=== PATIENT | male | born 1940 | race Caucasian/White ===

== ENCOUNTER 2020-11-22 19:22 | Inpatient (IN) | payer MEDICARE, OTHER ==
[~2020-11-22] VITALS: Ht 177.8 cm; Wt 64.9 kg
[2020-11-22 20:41] LABS: BASOPHILS # (AUTO) 0.1 K/uL (0.0-0.2); BASOPHILS % (AUTO) 1.1 % (0.0-2.0); EOSINOPHILS % (AUTO) 3.3 % (0.0-6.0); HEMATOCRIT 42 % (39-51); HEMOGLOBIN 13.9 g/dL (13.5-17.5); LYMPHOCYTES # (AUTO) 1.4 K/uL (0.8-4.8); MEAN CORPUSCULAR HGB CONC 33 g/dl (31.0-36.0); MEAN CORPUSCULAR VOLUME 97 fL (80-96); MONOCYTES # (AUTO) 0.8 K/uL (0.1-1.30); MONOCYTES % (AUTO) 10.3 % (2.0-12.0); NEUTROPHILS # (AUTO) 5.3 K/uL (1.8-8.9); NEUTROPHILS % (AUTO) 67.3 % (43.0-81.0); PLATELET COUNT (AUTO) 248 K/uL (150-450); RED BLOOD CELL COUNT(AUTO) 4.35 MIL/uL (4.5-6.0); WHITE BLOOD COUNT (AUTO) 7.8 K/uL (4.3-11.0)
[2020-11-22 20:52] LABS: CALCIUM, SERUM 9.1 mg/dL (8.5-10.1); CARBON DIOXIDE 31 mmol/L (21-32); CHLORIDE 104 mmol/L (98-107); CREATININE 1.3 mg/dL (0.6-1.3); GLUCOSE 96 mg/dL (74-106); POTASSIUM 4.7 mmol/L (3.5-5.1); SODIUM SERUM 141 mmol/L (136-145); UREA NITROGEN, BLOOD 31 mg/dL (7-18)
--- NOTE | 2020-11-22 20:59 | NUR ---
PATIENT REFUSED TO GET CT. ER MADE AWARE.
[2020-11-22 21:06] LABS: ALANINE AMINOTRANSFERASE 30 U/L (12-78); ALBUMIN 3.5 g/dL (3.4-5.0); ALCOHOL, BLOOD < 3 mg/dL (0-0); ALKALINE PHOSPHATASE 74 U/L (46-116); ASPARTATE AMINOTRANSFERASE 30 U/L (15-37); BILIRUBIN,DIRECT 0.1 mg/dL (0.0-0.2); BILIRUBIN,TOTAL 0.3 mg/dL (0.2-1.0); TOTAL PROTEIN, SERUM 7.9 g/dL (6.4-8.2)
[2020-11-22 21:10] LABS: ACETAMINOPHEN < 2 ug/ml (10-30)
--- NOTE | 2020-11-22 21:22 | NUR ---
JOHN CRISIS MARKING MACHINE OPERATOR PAGED.
[2020-11-22 22:35] LABS: BILIRUBIN,URINE NEGATIVE (NEGATIVE); COLOR,URINE YELLOW (YELLOW); LEUKOCYTE ESTERASE ,URINE SMALL (NEGATIVE); NITRITE, URINE NEGATIVE (NEGATIVE); PH,URINE 6.5 (5.0-8.0); PROTEIN,URINE NEGATIVE (NEGATIVE); UGLUCOSE NEGATIVE (NEGATIVE); UROBILINOGEN,URINE 0.2 EU/dL (0.2)
[2020-11-22 23:01] LABS: BACTERIA,URINE Few /HPF (None Seen); RBC,URINE 0-2 /HPF (0-2); SQUAMOUS EPITHELIAL CELL,UR Few /HPF (None Seen); WBC,URINE 21-50 /HPF (0-3)
--- NOTE | 2020-11-23 00:30 | NUR ---
REPORT GIVEN TO MORGAN MORIN.
--- NOTE | 2020-11-23 00:35 | NUR ---
PATIENT TRANSFERRED TO ROOM 211, VSS, IN NO ACUTE DISTRESS.
[2020-11-23] MEDS ORDERED: BIMA2.5D5 EACHEYE (00:37)
[2020-11-23] MEDS ORDERED: HYDR10SY16 PO (00:37)
[2020-11-23] MEDS ORDERED: CYAN-51 PO (00:37)
[2020-11-23] MEDS ORDERED: VIT1CAPS9 PO (00:37)
[2020-11-23] MEDS ORDERED: QUET25TA PO (00:37)
[2020-11-23] MEDS ORDERED: LEVO150T8 PO (00:37)
[2020-11-23] MEDS ORDERED: MELA3TAB41 PO (00:37)
[2020-11-23] MEDS ORDERED: CETI-90 PO (00:37)
[2020-11-23] MEDS ORDERED: MAGN400T8 PO (00:37)
[2020-11-23] MEDS ORDERED: CHOL100045 PO (00:37)
[2020-11-23] MEDS ORDERED: QUET50TA PO (00:37)
--- NOTE | 2020-11-23 00:41 | NUR ---
GPS ADMISSION NOTE, RECEIVED PATIENT FROM [facility] PATIENT ARRIVED ON THIS UNIT AT 0041 VIA GURNEY WITH 2 CAMP HEAD COUNSELOR ESCORTS. PATIENT ADMITTED ON A 5150 HOLD FOR DTO AND GD. PER HOLD PATIENT IS ALERT AND ORIENTED X 1 VERY CONFUSED AND UNABLE TO ANSWER SPECIFIC INFORMATION ABOUT HIMSELF. PATIENT HAS BEEN HAVING INCREASED AGITATION, FRUSTRATION, AND DELUSIONS. PATIENT UNABLE TO GIVE A VIABLE PLAN OF SELF CARE AT THIS TIME. THE 5150 WAS REVIEWED AND THE DOCUMENTATION IN THE 5150 HOLD APPEARS TO REFLECT THE PRESENTATION OF THE PATIENT. UPON FACE TO FACE ASSESSMENT PATIENT IS NOTED TO BEING CONFUSED, DISHEVELED, DISORGANIZED, COOPERATIVE, AND NEEDS REDIRECTION. PATIENT IS CURRENTLY LYING IN BED AWAKE, HAS NO S/S OR COMPLAINTS OF PAIN. PATIENT IS DISPLAYING NO S/S OF APPARENT DISTRESS. PATIENT BREATHING IS UNLABORED WITH EQUAL RISE AND FALL OF THE CHEST. PATIENT IS ALERT AND ORIENTATED X 1 ON ROOM AIR. PATIENT ASSISTED WITH TURING AND REPOSITIONING Q2HR AND PRN FOR COMFORT AND CIRCULATION. PATIENT HAS NO NEEDS AT THIS TIME. PATIENT DENIES SUICIDE IDEATIONS AND HOMICIDAL IDEATIONS AT THIS TIME BUT IS CONFUSED. PATIENT REFUSED TO SIGN ANY PAPER WORK DUE TO HIS CONFUSION. PATIENT ADVISED OF HIS HOLD AND PATIENT RIGHTS BOOKLET GIVEN. PATIENT IS UNDER THE PSYCHIATRIC CARE OF DR. LAWSON AND THE MEDICAL CARE OF DR MEIER. PATIENT BELONGINGS WERE INVENTORIED AND CHECKED FOR CONTRABAND. ALL CONTRABAND REMOVED AND STORED IN PATIENT HALLWAY LOCKER. PATIENT ADVANCED DIRECTIVES PREFERENCE, IMMUNIZATIONS QUESTIONER, NECESSARY PAPERWORK COMPLETED. PATIENT REFUSED SKIN ASSESSMENT. PATIENT ORIENTATED TO ROOM, FLOOR, AND STAFF WITH ALL QUESTIONS ANSWERED. PATIENT EDUCATED ON THE USE OF THE CALL VALENTIN. PATIENT BED SIDE RAILS ARE UP X 2 FOR SAFETY. PATIENT BED IS LOCKED, LOW AND I WILL CONTINUE TO MONITOR THIS PATIENT Q 15 MIN WITH THE HELP OF STAFF TO MAINTAIN SAFETY.
[2020-11-23] MEDS ORDERED: MAGNESIUM HYDROXIDE 30 ML UDC PO PRN (01:00)
[2020-11-23] MEDS ORDERED: MAG HYDROX/AL HYDROX/SIMETH 30 ML UDC PO PRN (01:00)
[2020-11-23] MEDS ORDERED: LORAZEPAM 0.5 MG TABLET PO PRN (01:00)
[2020-11-23] MEDS ORDERED: ACETAMINOPHEN 325 MG TABLET PO PRN (01:00)
[2020-11-23] MEDS ORDERED: ZOLPIDEM TARTRATE 5 MG TABLET PO PRN (01:00)
[2020-11-23] MEDS ORDERED: BLOOD SUGAR DIAGNOSTIC 1 EACH STRIP IN ONE (01:30)
[2020-11-23 02:42] VITALS: BP 134/71
[2020-11-23] MEDS ORDERED: cetrizine 10 MG TABLET PO PRN (05:00)
[2020-11-23] MEDS ORDERED: hydrOXYzine HCL SYRUP 10 MG/5 ML UDC PO PRN (05:00)
[2020-11-23] MEDS: LEVOTHYROXINE SODIUM 75 MCG TABLET PO SCH (07:30)
[2020-11-23 08:00] VITALS: BP 126/68
[2020-11-23] MEDS: CEPHALEXIN MONOHYDRATE 250 MG CAPSULE PO SCH ×3 (08:48→17:15)
[2020-11-23] MEDS: MAGNESIUM OXIDE 400 MG TABLET PO SCH (08:48)
[2020-11-23] MEDS: SERTRALINE HCL 25 MG TABLET PO SCH (12:04)
[2020-11-23] MEDS: LORAZEPAM 0.5 MG TABLET PO PRN ×2 (12:04→20:47)
[2020-11-23 16:00] VITALS: BP 124/80
[2020-11-23] MEDS: OLANZAPINE 2.5 MG TABLET PO SCH (16:40)
[2020-11-23] MEDS ORDERED: BIMATOPROST 2.5 ML DROPS OP SCH (18:00)
--- NOTE | 2020-11-23 18:07 | NUR ---
GPS RN NOTE: PATIENT SITTING IN THE CHAIR DINNING ROOM , RESTLESS CONFUSED DISORGANIZED, UNABLE TO PERFORM CT OF HEAD WILL INDORSE TO INCOMING SHIFT NURSE , TRY LATER .
--- NOTE | 2020-11-23 19:30 | NUR ---
RN NOTES: PT. BEHAVIOR UNCCOPERTIVE , ANXIOUS, EASILY AGITED AND PT. NOTED WITH SELF INFLICTED SKIN DISCOLORATIONS / BRUISES, WILL CONTINUE WITH CARE.
[2020-11-23 20:00] VITALS: BP 104/65
--- NOTE | 2020-11-23 20:49 | NUR ---
RN NOTES: ANXIETY PT. NOTED VERY ANXIOUS , RESTLESS , CLIMBING OUT THE BED AND NOT STAYING HIS BED ,SCREAMING ,ATIVAN 1 MG PO PRN GIVEN , WILL CONTINUE TO MONITOR.
[2020-11-23] MEDS: LATANOPROST EYE DROP 0.005% 2.5 ML BOTTLE OP SCH (21:15)
--- NOTE | 2020-11-24 06:30 | NUR ---
RN NOTES: PATIENT WAS ASSISTED TO BED MULTIPLE TIMES THROUGH OUT THE SHIFT WITH THE HELP OF STAFF BUT PT. REFUSED TO STAY IN BED EVERY TIME HE WAS ASSISTED TO BED. PATIENT ATTEMPTS TO CLIMB OUT OF BED UNASSISTED, UNABLE TO FOLLOW DIRECTIONS DUE TO CONFUSION, UNCOOPERATIVE. RESISTIVE TO CARE & ASSISTANCE. PATIENT WAS ASSISTED BACK TO SUZANNE CHAIR, PATIENT WAS NOTED BANGING ON SUZANNE CHAIR TRAY, AGITATED, ANXIOUS & RESTLESS. PRN ATIVAN WAS GIVEN AT NIGHT ORDERED. ATIVAN HELPED TO CALM DOWN THE PATIENT, BUT PATIENT REFUSED TO STAY IN BED THROUGH OUT THE NIGHT. WILL ENDORSE TO AM RN FOR CONTINUITY OF CARE.
[2020-11-24 08:00] VITALS: BP 110/80
[2020-11-24] MEDS: SERTRALINE HCL 25 MG TABLET PO SCH (08:46)
[2020-11-24] MEDS: MAGNESIUM OXIDE 400 MG TABLET PO SCH (08:46)
[2020-11-24] MEDS: LEVOTHYROXINE SODIUM 75 MCG TABLET PO SCH (08:46)
[2020-11-24] MEDS: LORAZEPAM 0.5 MG TABLET PO PRN ×2 (08:47→16:39)
[2020-11-24] MEDS: OLANZAPINE 2.5 MG TABLET PO SCH ×2 (08:47→16:39)
[2020-11-24] MEDS: CEPHALEXIN MONOHYDRATE 250 MG CAPSULE PO SCH ×3 (08:49→16:39)
--- NOTE | 2020-11-24 08:58 | NUR ---
WOUND CARE CONSULT: PT SEEN FOR RT ARM SKIN TEAR. RECOMMENDATIONS MADE FOR SKIN PROTECTION AND WOUND CARE. DISCUSSED WITH NURSING STAFF. MD IN AGREEMENT WITH PLAN OF CARE.
[2020-11-24] MEDS: Z GUARD REMEDY 2 OZ OINT TP SCH (09:19)
--- NOTE | 2020-11-24 09:32 | NUR ---
RECEIVED PATIENT AWAKE ALERT IN CHAIR, NO ACUTE DISTRESS NOTED. APPEARS ANXIOUS , FLAT AFFECT, UNKEMPT, GUARDED WITHDRAWN. DENIES SI HI AT THIS TIME.PT SPEECH GARBLED AND RESTLESS. VERBALIZATION OF FEELINGS ENCOURAGED. SAFETY PRECAUTIONS IN PLACE. WILL CONTINUE TO MONITOR Q15 FOR SAFETY, MOOD AND BEHAVIOR.
--- NOTE | 2020-11-24 09:33 | NUR ---
RN NOTE WOUND CARE PLAN ORDERED FOR PT. XEROFORM AND DRY DRESSING APPLIED. WILL CONTINUE TO MONITOR.
[2020-11-24 16:00] VITALS: BP 117/89
--- NOTE | 2020-11-24 18:06 | NUR ---
RN CLOSING NOTE PT IN SUZANNE CHAIR. DISHEVELED APPEARANCE. COOPERATIVE AND DEPRESSED. ANXIOUS IN PERIODS. AVH PRESENT. DENIES ANY SI/HI. MED COMPLIANT. SAFETY PRECAUTIONS IN PLACE. Q15 MINUTE CHECKS SIGNED. WILL GIVE REPORT TO NIGHT NURSE FOR KYA.
--- NOTE | 2020-11-24 20:02 | NUR ---
RN NOTES: PT. REFUSED TO STAY IN BED , PATIENT ATTEMPTS TO CLIMB OUT OF BED UNASSISTED, UNABLE TO FOLLOW DIRECTIONS DUE TO CONFUSION, UNCOOPERATIVE. RESISTIVE TO CARE & ASSISTANCE. PATIENT WAS ASSISTED BACK TO SUZANNE CHAIR, PATIENT WAS NOTED BANGING ON BED SIDE RALE, AGITATED, ANXIOUS & RESTLESS. WILL ENDORSE CONTINUITY OF CARE.
--- NOTE | 2020-11-24 20:07 | NUR ---
RN NOTES: PT. REFUSED TO STAY IN BED , PATIENT ATTEMPTS TO CLIMB OUT OF BED UNASSISTED, UNABLE TO FOLLOW DIRECTIONS DUE TO CONFUSION, UNCOOPERATIVE. RESISTIVE TO CARE & ASSISTANCE. PATIENT WAS ASSISTED BACK TO SUZANNE CHAIR, PATIENT WAS NOTED BANGING ON BED SIDE RALE, AGITATED, ANXIOUS & RESTLESS. PRN ATIVAN PO GIVEN , WILL ENDORSE CONTINUITY OF CARE.
[2020-11-24 20:30] VITALS: BP 140/86
[2020-11-24] MEDS: LATANOPROST EYE DROP 0.005% 2.5 ML BOTTLE OP SCH (21:42)
--- NOTE | 2020-11-25 04:49 | NUR ---
RN NOTES: CT HEAD NOT DONE , PT. KEEPS MOVING HIS HEAD AND PT. BEHAVIOR UNCOOPERTIVE EASILY AGITED .
--- NOTE | 2020-11-25 04:55 | NUR ---
RN NOTES: CT HEAD NOT DONE , PT. KEEPS MOVING HIS HEAD, ENCOURAGED TO PATIENT , BUT PT. BEHAVIOR UNCOOPERTIVE EASILY AGITED .
[2020-11-25 07:07] LABS: BASOPHILS % (AUTO) 0.3 % (0.0-2.0); HEMATOCRIT 43 % (39-51); HEMOGLOBIN 14.2 g/dL (13.5-17.5); LYMPHOCYTES # (AUTO) 0.4 K/uL (0.8-4.8); LYMPHOCYTES % (AUTO) 2.4 % (20.0-44.0); MEAN CORPUSCULAR HGB CONC 33 g/dl (31.0-36.0); MEAN CORPUSCULAR VOLUME 97 fL (80-96); MONOCYTES # (AUTO) 0.7 K/uL (0.1-1.30); MONOCYTES % (AUTO) 4.1 % (2.0-12.0); NEUTROPHILS # (AUTO) 16.6 K/uL (1.8-8.9); NEUTROPHILS % (AUTO) 93.2 % (43.0-81.0); PLATELET COUNT (AUTO) 230 K/uL (150-450); RED BLOOD CELL COUNT(AUTO) 4.39 MIL/uL (4.5-6.0); WHITE BLOOD COUNT (AUTO) 17.8 K/uL (4.3-11.0)
[2020-11-25] MEDS: LEVOTHYROXINE SODIUM 75 MCG TABLET PO SCH (07:30)
[2020-11-25 07:32] LABS: ALANINE AMINOTRANSFERASE 29 U/L (12-78); ALBUMIN 3.7 g/dL (3.4-5.0); ALKALINE PHOSPHATASE 74 U/L (46-116); ASPARTATE AMINOTRANSFERASE 35 U/L (15-37); BILIRUBIN,TOTAL 0.7 mg/dL (0.2-1.0); CALCIUM, SERUM 9.6 mg/dL (8.5-10.1); CARBON DIOXIDE 24 mmol/L (21-32); CHLORIDE 107 mmol/L (98-107); CREATININE 1.4 mg/dL (0.6-1.3); GLUCOSE 157 mg/dL (74-106); POTASSIUM 4.4 mmol/L (3.5-5.1); SODIUM SERUM 144 mmol/L (136-145); TOTAL PROTEIN, SERUM 8.4 g/dL (6.4-8.2); UREA NITROGEN, BLOOD 50 mg/dL (7-18)
[2020-11-25 07:36] LABS: CHOLESTEROL 211 mg/dL (<200); HDL CHOLESTEROL 87 mg/dL (40-60); LDL 120 mg/dL (0-99); TRIGLYCERIDES 36 mg/dL (30-150)
[2020-11-25 08:00] VITALS: BP 134/69
--- NOTE | 2020-11-25 08:15 | NUR ---
GPS RN NOTE: DR VALLES NOTIFIED PATIENT CONDITION AND LABS THIS MORNING. WAITING FOR ORDERS
[2020-11-25] MEDS: CEPHALEXIN MONOHYDRATE 250 MG CAPSULE PO SCH ×3 (09:00→16:33)
[2020-11-25] MEDS: OLANZAPINE 2.5 MG TABLET PO SCH ×2 (09:00→16:33)
[2020-11-25] MEDS: SERTRALINE HCL 25 MG TABLET PO SCH (09:00)
[2020-11-25] MEDS: MAGNESIUM OXIDE 400 MG TABLET PO SCH (09:00)
[2020-11-25] MEDS ORDERED: IV NS 0.9% 1,000 ML IV ONE (09:30)
[2020-11-25] MEDS: Z GUARD REMEDY 2 OZ OINT TP SCH (09:39)
--- NOTE | 2020-11-25 09:40 | NUR ---
GPS RN NOTE: PATIENT REFUSED MEDICATIONS GETTING AGITATED, RESTLESS, ANGRY MOOD. EXPLAIN RISK AND BENEFITS PT CONFUSED , DISORGANIZED WILL CONTINUE MONITORING.
[2020-11-25] MEDS: LORAZEPAM 0.5 MG TABLET PO PRN (12:14)
--- NOTE | 2020-11-25 12:18 | NUR ---
GPS RN NOTE: PATIENT SITTING IN THE CHAIR DINNING ROOM , RESTLESS CONFUSED DISORGANIZED, YELLING SCREAMING ATIVAN 1 MG PO PRN GIVEN PER ORDER WILL CONTINUE MONITORING
[2020-11-25 16:00] VITALS: BP 144/86
--- NOTE | 2020-11-25 19:36 | NUR ---
RN NOTES: -UPON ENDORSEMENT TIME AT AROUND 1900, PATIENT WAS SITTING ON THE CHAIR IN THE DINNING ROOM, ON CLOSE WATCH,SPECIAL INVESTIGATOR STAY CLOSE WITH HIM. -HE LOOKS RESTLESS.PER ENDORSEMENT BLOOD TEST, URINE TEST AND X-RAY WAS DONE AND PATIENT WAS STARTED ON ATB/PER ORAL., OF IVF OF NS AT 100 CC/HR WITH REMAINING AMOUNT OF 200 CC LEVEL. IV CANNULA ON THE RFA G#22 INTACT.
--- NOTE | 2020-11-25 19:47 | NUR ---
RN NOTES: - AT 1914 --V/S CHECKED UPON ENDORSEMENT BP-148/74 OR-96 RR-21 SPO2-91-91% ROOM AIR - AT 1940- NOTED TO BE RESTLESS, WITH SHAKING, HE IS TRYING TO PULL OUT HIS IV, RN TRIED TO PACIFY HIM AND EXPLAINED HE NEEDS TO CLAM DOWN AND REMAIN SITTED, HE LISTEN, RN WAS ABLE TO FIX HIS IV CANNULA AND WARP WITH STOCKINETTE TO SECURE IT. IVF STILL ONGOING, IV CANNULA REMAIN PATENT. -KEPT ON CLOSE WATCH, RN STAY BESIDE HIM. RIGHT NOW HE IS TRYING TO TAKE A NAP. -MONITORED FOR SIGN OF RESPIRATORY DISTRESS, ABLE TO BREATH SPONTANEOUSLY IN ROOM AIR, NO SIGN OF RESPIRATORY DISCOMFORT AT THIS TIME.
[2020-11-25 20:00] VITALS: BP 148/74
[2020-11-25 20:16] VITALS: BP 148/74
--- NOTE | 2020-11-25 20:29 | NUR ---
RN NOTES: -ON CLOSE WATCH, FREQUENT VISUAL CHECK, HE IS AWAKE IN BETWEEN, RESTLESS , TRYING TO REMOVE HIS BRIEF, WHILE RN IS HELPING HIM HE WAS ABLE TO SPIT OUT SOME WHITE PHLEGM.REMAINS AFEBRILE.MONITORED CLOSELY.
[2020-11-25] MEDS: LATANOPROST EYE DROP 0.005% 2.5 ML BOTTLE OP SCH (21:36)
--- NOTE | 2020-11-25 22:09 | NUR ---
RN NOTES: -IVF ALMOST COMPLETED, PATIENT IS AWAKE AT SHORT INTERVALS, HE WILL SHOUT IN BETWEEN,CAN BE EASILY DIVERTED, NOTED WITH COUGHING AND WHITE PHLEGM. -RN CHECKED HIS V/S SPO2- FLUCTUATING 89-90% IN ROOM AIR -FL-78 RR-18-19 T-98.6 BP-140/70 -MEDICAL WARD SUPERVISOR-DR. AKIRA MOLINA, AWAITING FOR RETURN CALL.
--- NOTE | 2020-11-25 22:17 | NUR ---
RN NOTES: -IVF NS 1 LITER COMPLETED.
[2020-11-25 22:20] VITALS: BP 140/70
--- NOTE | 2020-11-25 22:35 | NUR ---
RN NOTES: --AT 2225 (RESOURCES REPRESENTATIVE) CALLED BACK, NOTIFIED REGARDING PATIENT STATUS, RELAYED LATEST LABS AND CXR,STARTED ON KEFLEX ORAL, PATIENT DESATURATING IN BETWEEN SPO2-89-90% GOING UP TO SPO2-91%, PATIENT NEEDS TO BE FURTHER TREATED AND MIGHT BENEFIT IN IV/ATB, HYDRATION OF 1 LITER WAS JUST COMPLETED AND NEEDS TO BE ADMITTED MED-SURG, PER MORNING ENDORSEMENT HE WAS ALREADY GIVEN APPROVAL BY DR. BRASHER. --BUT ACCORDING TO DR. CHAMPION WE NEED TO GET A DISCHARGE ORDER FROM DR. BRASHER FROM PSYCH UNIT AND CHANGE TO MEDICAL, BY THEN HE CAN BE ADMITTED IN NM-3 WITH NEW ACCOUNT NUMBER.
--- NOTE | 2020-11-25 22:41 | NUR ---
RN NOTES: -CALLED DR. BRASHER NOTIFIED REGARDING THE PATIENT DESATURATION. -DR. BRASHER DISCHARGE THE PATIENT I PSYCH UNIT AND ADMIT TO [address], CONTINUE BED HOLD. -NURSING DIRECTOR OF [facility] NOTIFIED PATIENT WILL BE TRANSFERRED TO [place] 323-1.
--- NOTE | 2020-11-25 23:14 | NUR ---
RN NOTES: -AT 223 REPORT GIVEN TO NICK/RN REGARDING PATIENT 80 Y.O., MALE, FROM [facility], ADMITTED ON 11/23/2020, ON 0 UP TO 11/25/2020, NOW ON 5250 UP TO 12/09/20,A/OX1 CONFUSED, PERIODS OF INCREASE AGITATION,UNABLE TO CARE FOR HIMSELF,DNR/DNI, WBC-17.8, BUN-50, CXR-NO EVIDENCE FOR ACTIVE PULMONARY DISEASE, HE HAS UTI URINE RESULT WBC-21-50, CRUSHED MED AND GIVE WITH FOOD, HE WAS STARTED ON KEFLEX 500 MG TID,UNSTEADY GAIT,HE HAS SKIN TEAR ON RFA AND SACRAL REDNESS, IV LINE ON RFA-G#22. --ENDORSED FOR CONTINUITY OF CARE --AT 2300 FAXED TO ADMISSION FACE SHEET AND PATIENT ROOM:GOING TO [facility] 232-1 ADMITTING DOCTOR:DR. RIVERA DX:UTI --AT 2307 PATIENT WAS SEND TO [facility] WITH MEDICATION(XALATAN EYEDROP) AND BELONGINGS. --WILL CALL AND NOTIFY REGARDING PATIENT ADMISSION TO [facility].
--- NOTE | 2020-11-26 06:22 | NUR ---
RN NOTES: -LEFT TELEPHONE MESSAGE TO HIS -JAY THAT PATIENT WAS TRANSFERRED TO [facility].
[2020-11-26] MEDS ORDERED: ALLA266C2 TP (07:53)
[2020-11-26] MEDS ORDERED: HYDR-3642 PO (07:53)
[2020-11-26] MEDS ORDERED: SERT25TA PO (07:53)
[2020-11-26] MEDS ORDERED: CEPH500C2 PO (07:53)
[2020-11-26] MEDS ORDERED: LORA-259 PO (07:53)
[2020-11-26] MEDS ORDERED: MAGN400O6 PO (07:53)
[2020-11-26] MEDS ORDERED: LATA2.5D15 EACHEYE (07:53)
[2020-11-26] MEDS ORDERED: OLAN2.5T3 PO (07:53)
[2020-11-26] MEDS ORDERED: ACET-868 PO (07:53)
[2020-11-26] MEDS ORDERED: MAG30ORA PO (07:53)
[2020-11-26] MEDS ORDERED: ZOLP5TAB8 PO (07:53)
[2020-12-05] MEDS ORDERED: OLAN2.5T3 PO ×3 (14:41)
[2020-12-05] MEDS ORDERED: TAMS-12 PO (14:41)
== END 2020-11-25 22:39 | disposition short-term general hospital (02) | DRG 885 ==
LOC: ER 20:36 → GPS 11-23 00:20
PROVIDERS: ADMIT Psychiatry & Neurology Psychiatry; ATTEND Internal Medicine
DX: F29 Unspecified psychosis not due to a substance or known physiological condition (principal); N17.0 Acute kidney failure with tubular necrosis; F02.81 Dementia in other diseases classified elsewhere, unspecified severity, with behavioral disturbance; N39.0 Urinary tract infection, site not specified; E03.9 Hypothyroidism, unspecified; F41.9 Anxiety disorder, unspecified; G30.9 Alzheimer's disease, unspecified; I71.9 Aortic aneurysm of unspecified site, without rupture; Z73.6 Limitation of activities due to disability; R53.1 Weakness; R27.8 Other lack of coordination; Z91.81 History of falling; F32.9 Major depressive disorder, single episode, unspecified; Z79.899 Other long term (current) drug therapy
CPT/HCPCS: 36415; 71045-TC; 80048-TC; 80053-TC; 80061-TC; 80076-TC; 81001; 82962-TC; 84484-TC; 85025-TC; 87081-TC; 87086-TC; G0480; J7030

== ENCOUNTER 2020-11-25 23:36 | Inpatient (IN) | payer MEDICARE, OTHER ==
[~2020-11-25] VITALS: Ht 165.1 cm; Wt 62.1 kg
[~2020-11-25 23:36] MED LIST: BIMA2.5D5 EACHEYE; CETI-90 PO; CHOL100045 PO; CYAN-51 PO; HYDR10SY16 PO; LEVO150T8 PO; MAGN400T8 PO; VIT1CAPS9 PO
[2020-11-25 23:40] VITALS: BP 131/86
[2020-11-26 01:00] VITALS: BP 158/76
[2020-11-26] MEDS ORDERED: ONDANSETRON HCL/PF 4 MG/2 ML VIAL IVP PRN (01:00)
[2020-11-26] MEDS ORDERED: IV NS 0.9% 1,000 ML IV PRN (01:00)
[2020-11-26] MEDS: CEFTRIAXONE 1 G in IV D5W 50 ML IV SCH ×2 (01:00→22:00)
[2020-11-26] MEDS ORDERED: MAG HYDROX/AL HYDROX/SIMETH 30 ML UDC PO PRN ×2 (01:00→15:00)
[2020-11-26] MEDS ORDERED: ACETAMINOPHEN 325 MG TABLET PO PRN ×2 (01:00→15:00)
[2020-11-26] MEDS ORDERED: MAGNESIUM HYDROXIDE 30 ML UDC PO PRN ×2 (01:00→15:00)
[2020-11-26] MEDS ORDERED: ZOLPIDEM TARTRATE 5 MG TABLET PO PRN (01:00)
[2020-11-26] MEDS ORDERED: Z GUARD REMEDY 2 OZ OINT TP PRN (01:00)
[2020-11-26] MEDS ORDERED: ALBUTEROL FS 2.5 MG/3 ML VIAL.NEB NEB PRN (01:30)
[2020-11-26 02:03] LABS: ABG BASE EXCESS -0.2 mmol/L; ABG OXYGEN SATURATION 98.5 % (92.0-98.5); ABG PCO2 35.7 mmHg (35.0-45.0); ABG PH 7.436 (7.350-7.450); ABG PO2 124.8 mmHg (75.0-100.0); AaDO2 47.2 mmHg; COHb 0.6 % (0.5-1.5); MetHb 0.3 % (0.0-1.5); O2Hb 97.6 % (94.0-97.0); SITE, ABG Right Radial; VENT MODE, BG N/C 2.5L
[2020-11-26] MEDS ORDERED: CEFTRIAXONE 1 G VIAL ONE (02:24)
--- NOTE | 2020-11-26 03:07 | NUR ---
RN NOTES: IV OF 0.9 NSS 1000ML@100ML/HR AD ROCEPHINE 1 GRAM GIVEN
--- NOTE | 2020-11-26 06:37 | NUR ---
RN NOTES: SPOKE TO DR CHAMPION TO VALIDATE CODE STATUS OF DNR/DN, NURSE OFEL WITNESS AND VALIDATE THE ORDER VIA PHONE CONVERSATION.
--- NOTE | 2020-11-26 06:40 | NUR ---
RN CLOSING NOTES: RECEIVED PATIENT WAKE IN BED, BED IN LOW POSITION, CALL LIGHTS WITHIN REACH, NO COMPLAIN OF PAIN AND DISCOMFORT AT THIS TIME, PATIENT WITH 1:1 SITTER ON O2 INHALATION AT 3LPM, TOLERATING WELL, HOB AT 45 DEGREE, WITH NO RESP DISTRESS OBSERVE, PATIENT IS LETHARGIC BUT AROUSABLE TO STIMULI, WITH ONGOING IV AT RIGHT HAND ON 0.9NSS 1000ML @100ML/HR INFUSING WELL, PCR TEST DONE DUE TO DESATURATION WITHOUT OXYGEN AT 82-86PERCENT TURNS NEGATIVE.ALL NEEDS MET KEPT CLEAN AND DRY, WILL CONTINUE TO MONITOR.
--- NOTE | 2020-11-26 07:25 | NUR ---
RN OPENING NOTE- PATIENT IN BED, BED IN LOW POSITION, CALL LIGHTS WITHIN REACH, , PATIENT WITH 1:1 SITTER ON O2 AT 3LPM, TOLERATING WELL, HOB AT 45 DEGREE, WITH NO RESP DISTRESS OBSERVE, PATIENT IS LETHARGIC BUT AROUSABLE TO STIMULI, WITH ONGOING IV AT RIGHT HAND ON NS @100ML/HR INFUSING WELL, KEPT CLEAN AND DRY, WILL CONTINUE TO MONITOR.
[2020-11-26] MEDS ORDERED: ALLA266C2 TP (07:53)
[2020-11-26] MEDS ORDERED: MAG30ORA PO (07:53)
[2020-11-26] MEDS ORDERED: HYDR-3642 PO (07:53)
[2020-11-26] MEDS ORDERED: ACET-868 PO (07:53)
[2020-11-26] MEDS ORDERED: LATA2.5D15 EACHEYE (07:53)
[2020-11-26] MEDS ORDERED: SERT25TA PO (07:53)
[2020-11-26] MEDS ORDERED: OLAN2.5T3 PO (07:53)
[2020-11-26] MEDS ORDERED: MAGN400O6 PO (07:53)
[2020-11-26] MEDS ORDERED: ZOLP5TAB8 PO (07:53)
[2020-11-26] MEDS ORDERED: CEPH500C2 PO (07:53)
[2020-11-26] MEDS ORDERED: LORA-259 PO (07:53)
[2020-11-26 07:57] LABS: BASOPHILS % (AUTO) 0.2 % (0.0-2.0); HEMATOCRIT 43 % (39-51); HEMOGLOBIN 13.9 g/dL (13.5-17.5); LYMPHOCYTES # (AUTO) 0.6 K/uL (0.8-4.8); LYMPHOCYTES % (AUTO) 2.7 % (20.0-44.0); MEAN CORPUSCULAR HGB CONC 32 g/dl (31.0-36.0); MEAN CORPUSCULAR VOLUME 98 fL (80-96); MONOCYTES % (AUTO) 9.4 % (2.0-12.0); NEUTROPHILS # (AUTO) 18.6 K/uL (1.8-8.9); NEUTROPHILS % (AUTO) 87.7 % (43.0-81.0); PLATELET COUNT (AUTO) 191 K/uL (150-450); WHITE BLOOD COUNT (AUTO) 21.2 K/uL (4.3-11.0)
[2020-11-26] MEDS: PANTOPRAZOLE 40 MG TABLET.DR PO SCH (08:19)
[2020-11-26 08:26] LABS: ALANINE AMINOTRANSFERASE 28 U/L (12-78); ALBUMIN 3.5 g/dL (3.4-5.0); ALKALINE PHOSPHATASE 69 U/L (46-116); ASPARTATE AMINOTRANSFERASE 42 U/L (15-37); BILIRUBIN,TOTAL 0.6 mg/dL (0.2-1.0); CALCIUM, SERUM 9.3 mg/dL (8.5-10.1); CARBON DIOXIDE 26 mmol/L (21-32); CHLORIDE 112 mmol/L (98-107); CREATININE 1.6 mg/dL (0.6-1.3); GLUCOSE 116 mg/dL (74-106); MAGNESIUM 3.2 mg/dL (1.8-2.4); PHOSPHORUS 4.7 mg/dL (2.5-4.9); POTASSIUM 3.9 mmol/L (3.5-5.1); SODIUM SERUM 148 mmol/L (136-145); TOTAL PROTEIN, SERUM 7.9 g/dL (6.4-8.2); UREA NITROGEN, BLOOD 65 mg/dL (7-18)
[2020-11-26 08:42] LABS: D-DIMER 9.45 mg/L(FEU (0.17-0.50)
[2020-11-26 08:44] LABS: CREATINE KINASE, TOTAL 457 U/L (39-308); FERRITIN 193 ng/mL (8-388); THYROID STIMULATING HORMONE 14.497 uIU/mL (0.358-3.74)
[2020-11-26] MEDS ORDERED: IV NS 0.9% 1,000 ML IV SCH (10:00)
[2020-11-26] MEDS ORDERED: SERTRALINE HCL 25 MG TABLET PO SCH (12:30)
[2020-11-26] MEDS ORDERED: OLANZAPINE 2.5 MG TABLET PO SCH (12:30)
[2020-11-26] MEDS: IV D5/0.45 NACL 1,000 ML IV SCH (14:11)
[2020-11-26] MEDS ORDERED: hydrOXYzine 10 MG TABLET PO PRN (15:00)
[2020-11-26] MEDS ORDERED: cetrizine 10 MG TABLET PO PRN (15:00)
[2020-11-26] MEDS: OLANZAPINE 2.5 MG TABLET PO SCH (16:40)
--- NOTE | 2020-11-26 18:29 | NUR ---
RN CLOSING NOTE- PATIENT CONTINUES IN BED, BED IN LOW POSITION, CALL LIGHTS WITHIN REACH, , PATIENT WITH 1:1 SITTER ON O2 AT 3LPM, TOLERATING WELL, HOB AT 45 DEGREE, WITH NO RESP DISTRESS OBSERVE, PATIENT IS LETHARGIC, SLEPT OFF AND ON ALL DAY. PT WITH ONGOING IV AT RIGHT HAND ON D5 1/2NS @75ML/HR INFUSING WELL, KEPT CLEAN AND DRY, WILL CONTINUE TO MONITOR. PT EATING POORLY. MED COMPLIANT, NEEDS ATTENDED. REPORT TO NOC SHIFT FOR CONTINUITY OF CARE
--- NOTE | 2020-11-26 19:36 | NUR ---
RN OPENING NOTES: RECEIVED PATIENT SLEEP IN BED COMFORTABLY, AROUSABLE TO VERBAL STIMULI, BED IN LOW POSITION, CALL LIGHTS WITHIN REACH, NO COMPLAIN OF PAIN AND DISCOMFORT AT THIS TIME, ON NC @2LPM SATURATING WELL, NO SHORTNESS OF BREATH, WITH RFA#20 WITH D5 1/2 NS@75ML/HR INFUSING WELL, PATIENT KEPT CLEAN AND DRY ALL NEEDS MET, WILL CONTINUE TO MONITOR.
[2020-11-26 20:00] VITALS: BP 121/73
[2020-11-26] MEDS: LATANOPROST EYE DROP 0.005% 2.5 ML BOTTLE EACHEYE SCH (22:07)
[2020-11-27] MEDS: LORAZEPAM 1 MG TABLET PO PRN ×2 (01:54→21:25)
[2020-11-27 02:41] VITALS: BP 121/73
[2020-11-27] MEDS: IV D5/0.45 NACL 1,000 ML IV SCH ×2 (04:33→15:43)
--- NOTE | 2020-11-27 06:46 | NUR ---
MS RN CLOSING NOTE: PATIENT SLEEP IN BED COMFORTABLY, AROUSABLE TO VERBAL STIMULI,NO COMPLAIN OF PAIN AND DISCOMFORT AT THIS TIME, BED IN LOW POSITION, CALL LIGHTS WITHIN REACH, WITH 1:1 SITTER , ON O2 INHALATION AT 2 LPM, HOB AT 30 DEGREE WITH NO RESP. DISTRESS OBSERVED, WEEKLY SKIN ASSESSMENT DONE AND DOCUMENTED WITH IV LINE AT RAC #18 WITH ONGOING IV HYDRATION OF D5 1/2 NSS 1000ML @75ML PER HOUR INFUSING WELL, PATIENT KEPT CLEAN AND DRY, ALL NEEDS MET, ENDORSE TO INCOMING SHIFT.
--- NOTE | 2020-11-27 07:53 | NUR ---
MS RN OPENING NOTES RECEIVED PATIENT IN BED, ASLEEP. PATIENT ON OXYGEN THERAPY AT 2 LPM VIA NASAL CANNULA; BREATHING EVEN AND UNLABORED AT THIS TIME. NO S/S OF PAIN SUCH FACIAL GRIMACING, MOANING OR GUARDING NOTED. IV ACCESS AT RFA PRESENT AND INTACT INFUSING D5 1/2 NS @ 75 MLS/HR. SAFETY PRECAUTIONS IN PLACE; BED IN LOW POSITION AND LOCKED, RAILS UP X2, CALL LIGHT WITHIN REACH. WILL CONTINUE TO MONITOR PATIENT.
[2020-11-27] MEDS: LEVOTHYROXINE SODIUM 75 MCG TABLET PO SCH (08:48)
[2020-11-27] MEDS: OLANZAPINE 2.5 MG TABLET PO SCH ×2 (08:49→16:05)
[2020-11-27] MEDS: PANTOPRAZOLE 40 MG TABLET.DR PO SCH (08:49)
[2020-11-27] MEDS: SERTRALINE HCL 25 MG TABLET PO SCH (08:49)
[2020-11-27] MEDS: CHOLECALCIFEROL 1,000 UNIT TABLET (VIT D3) PO SCH (08:50)
[2020-11-27] MEDS: CYANOCOBALAMIN 500 MCG TABLET PO SCH (08:51)
[2020-11-27] MEDS: MULTIVITAMIN/LUTEIN/MINERALS 1 TAB PO SCH (08:51)
[2020-11-27] MEDS: MAGNESIUM OXIDE 400 MG TABLET PO SCH (08:51)
[2020-11-27 09:05] LABS: BASOPHILS % (AUTO) 0.1 % (0.0-2.0); EOSINOPHILS % (AUTO) 0.1 % (0.0-6.0); HEMATOCRIT 39 % (39-51); HEMOGLOBIN 12.9 g/dL (13.5-17.5); LYMPHOCYTES # (AUTO) 0.4 K/uL (0.8-4.8); LYMPHOCYTES % (AUTO) 2.3 % (20.0-44.0); MEAN CORPUSCULAR HGB CONC 33 g/dl (31.0-36.0); MEAN CORPUSCULAR VOLUME 97 fL (80-96); MONOCYTES # (AUTO) 1.7 K/uL (0.1-1.30); MONOCYTES % (AUTO) 8.9 % (2.0-12.0); NEUTROPHILS # (AUTO) 17.1 K/uL (1.8-8.9); NEUTROPHILS % (AUTO) 88.6 % (43.0-81.0); PLATELET COUNT (AUTO) 165 K/uL (150-450); RED BLOOD CELL COUNT(AUTO) 4.05 MIL/uL (4.5-6.0); WHITE BLOOD COUNT (AUTO) 19.3 K/uL (4.3-11.0)
[2020-11-27] MEDS: Z GUARD REMEDY 2 OZ OINT TP SCH (09:15)
[2020-11-27 09:31] LABS: CALCIUM, SERUM 8.3 mg/dL (8.5-10.1); CARBON DIOXIDE 22 mmol/L (21-32); CHLORIDE 110 mmol/L (98-107); CREATININE 3.7 mg/dL (0.6-1.3); GLUCOSE 140 mg/dL (74-106); PHOSPHORUS 4.9 mg/dL (2.5-4.9); SODIUM SERUM 143 mmol/L (136-145)
[2020-11-27 09:35] LABS: UREA NITROGEN, BLOOD 85 mg/dL (7-18)
--- NOTE | 2020-11-27 10:20 | NUR ---
MS RN NOTES LAB CALLED WITH CRITICAL LAB OF BUN OF 85 AND CR OF 3.7 MD NOTIFIED AND AWARE
[2020-11-27] MEDS: TAMSULOSIN 0.4 MG CAP.SR.24H PO SCH ×2 (11:00→21:18)
--- NOTE | 2020-11-27 11:04 | NUR ---
MS RN NOTES US KIDNEY DONE. PER US CHIEF CREDIT OFFICER PATIENT WITH OVER 1000 MLS URINE. DISTENDED BLADDER. NOTIFIED. ORDER FOR LIZARRAGA CATH INSERTION RECEIVED. LIZARRAGA CATH INSERTED. TEA COLOR URINE DRAINING.
--- NOTE | 2020-11-27 18:35 | NUR ---
MS RN CLOSING NOTES PATIENT IN BED, ASLEEP. PATIENT ON OXYGEN THERAPY AT 2 LPM VIA NASAL CANNULA; BREATHING EVEN AND UNLABORED AT THIS TIME. NO S/S OF PAIN SUCH FACIAL GRIMACING, MOANING OR GUARDING NOTED DURING THE DAY. IV ACCESS AT RFA PRESENT AND INTACT INFUSING D5 1/2 NS @ 75 MLS/HR. ALL NEEDS ATTENDED DURING THE DAY. SAFETY PRECAUTIONS IN PLACE; BED IN LOW POSITION AND LOCKED, RAILS UP X2, CALL LIGHT WITHIN REACH. WILL ENDORSE TO BED CONTROL SPECIALIST NURSE.
--- NOTE | 2020-11-27 19:40 | NUR ---
MS RN Opening Notes Patient was seen awake in bed resting. Patient's A/Ox4. Patient's on room air with no respiratory distress noted. Patient has a ALEXANDRA midline. Patient's in no acute distress at this time. Safety measures in place: Bed locked, side rails upx2, and call light within reach of the patient. Will continue to monitor the patient.
[2020-11-27 20:00] VITALS: BP 124/68
[2020-11-27] MEDS: CEFTRIAXONE 1 G in IV D5W 50 ML IV SCH (21:16)
[2020-11-27] MEDS: LATANOPROST EYE DROP 0.005% 2.5 ML BOTTLE EACHEYE SCH (21:18)
[2020-11-28 06:03] LABS: BASOPHILS % (AUTO) 0.4 % (0.0-2.0); EOSINOPHILS % (AUTO) 2.2 % (0.0-6.0); HEMATOCRIT 36 % (39-51); HEMOGLOBIN 12.1 g/dL (13.5-17.5); LYMPHOCYTES # (AUTO) 0.7 K/uL (0.8-4.8); LYMPHOCYTES % (AUTO) 5.4 % (20.0-44.0); MEAN CORPUSCULAR HGB CONC 33 g/dl (31.0-36.0); MEAN CORPUSCULAR VOLUME 97 fL (80-96); MONOCYTES % (AUTO) 8.1 % (2.0-12.0); NEUTROPHILS # (AUTO) 10.5 K/uL (1.8-8.9); NEUTROPHILS % (AUTO) 83.9 % (43.0-81.0); PLATELET COUNT (AUTO) 134 K/uL (150-450); RED BLOOD CELL COUNT(AUTO) 3.72 MIL/uL (4.5-6.0); WHITE BLOOD COUNT (AUTO) 12.5 K/uL (4.3-11.0)
[2020-11-28] MEDS: IV D5/0.45 NACL 1,000 ML IV SCH ×2 (06:12→16:07)
[2020-11-28 07:48] LABS: CALCIUM, SERUM 8.3 mg/dL (8.5-10.1); CARBON DIOXIDE 25 mmol/L (21-32); CHLORIDE 110 mmol/L (98-107); CREATININE 1.4 mg/dL (0.6-1.3); GLUCOSE 103 mg/dL (74-106); PHOSPHORUS 2.3 mg/dL (2.5-4.9); POTASSIUM 3.6 mmol/L (3.5-5.1); SODIUM SERUM 145 mmol/L (136-145); UREA NITROGEN, BLOOD 36 mg/dL (7-18)
[2020-11-28 08:00] VITALS: BP 101/58
--- NOTE | 2020-11-28 08:00 | NUR ---
m/s dock grader: md visit seen and examined by dr. sims at this time. for d'c planning back to gps unit tomorrow.
[2020-11-28] MEDS: PANTOPRAZOLE 40 MG TABLET.DR PO SCH (08:51)
[2020-11-28] MEDS: CYANOCOBALAMIN 500 MCG TABLET PO SCH (08:51)
[2020-11-28] MEDS: MAGNESIUM OXIDE 400 MG TABLET PO SCH (08:51)
[2020-11-28] MEDS: SERTRALINE HCL 25 MG TABLET PO SCH (08:51)
[2020-11-28] MEDS: LEVOTHYROXINE SODIUM 75 MCG TABLET PO SCH (08:51)
[2020-11-28] MEDS: OLANZAPINE 2.5 MG TABLET PO SCH ×3 (08:51→16:06)
[2020-11-28] MEDS: MULTIVITAMIN/LUTEIN/MINERALS 1 TAB PO SCH (08:51)
[2020-11-28] MEDS: CHOLECALCIFEROL 1,000 UNIT TABLET (VIT D3) PO SCH (08:51)
--- NOTE | 2020-11-28 08:51 | NUR ---
m/s continuous improvement coordinator: notes pt remains sleeping at interval, but easily arousable then goes back to sleep. breakfast and meds held. sitter remains at bedside. will continue to monitor.
[2020-11-28] MEDS: Z GUARD REMEDY 2 OZ OINT TP SCH (08:52)
--- NOTE | 2020-11-28 10:00 | NUR ---
m/s oil and gas drafter: notes resting comfortable in bed. sitter remains at bedside. no distress noted.
[2020-11-28] MEDS ORDERED: OLANZAPINE 2.5 MG TABLET PO PRN (13:00)
[2020-11-28] MEDS ORDERED: K PHOS NEUTRAL 250 MG TABLET PO ONE (15:30)
--- NOTE | 2020-11-28 17:00 | NUR ---
m/s elevator operator service: notes having dinner with assistance from sitter. hob elevated. no distress noted. will continue to monitor.
[2020-11-28 18:20] VITALS: BP 113/61
--- NOTE | 2020-11-28 19:00 | NUR ---
m/s child welfare social worker: notes report given to margarito (rn) for continuity of care.
--- NOTE | 2020-11-28 19:46 | NUR ---
MS MORA Opening Notes Patient was seen awake in bed resting. Patient's A/Ox1. Patient's on 2L of oxygen via nasal cannula with no respiratory distress noted. Patient has an IV access on his RFA Gauge#20, which is intact, patent, and flushing well. Patient's in no acute distress at this time. Safety measures in place: Bed locked, bed alarm on, side rails upx3, and call light within reach of the patient. Will continue to monitor the patient. Addendum: 11/28/20 at 1948 by NABILA ROBB RN Sitter at bedside noted.
[2020-11-28 20:00] VITALS: BP 144/81
[2020-11-28] MEDS: CEFTRIAXONE 1 G in IV D5W 50 ML IV SCH (21:14)
[2020-11-28] MEDS: TAMSULOSIN 0.4 MG CAP.SR.24H PO SCH (21:15)
[2020-11-28] MEDS: LATANOPROST EYE DROP 0.005% 2.5 ML BOTTLE EACHEYE SCH (21:16)
[2020-11-28] MEDS: LORAZEPAM 1 MG TABLET PO PRN (21:26)
[2020-11-29] MEDS: ZOLPIDEM TARTRATE 5 MG TABLET PO PRN (00:55)
[2020-11-29 06:59] LABS: BASOPHILS % (AUTO) 0.2 % (0.0-2.0); EOSINOPHILS % (AUTO) 0.9 % (0.0-6.0); HEMATOCRIT 39 % (39-51); HEMOGLOBIN 13.2 g/dL (13.5-17.5); LYMPHOCYTES # (AUTO) 0.6 K/uL (0.8-4.8); LYMPHOCYTES % (AUTO) 4.7 % (20.0-44.0); MEAN CORPUSCULAR HGB CONC 34 g/dl (31.0-36.0); MEAN CORPUSCULAR VOLUME 97 fL (80-96); NEUTROPHILS # (AUTO) 10.7 K/uL (1.8-8.9); NEUTROPHILS % (AUTO) 86.2 % (43.0-81.0); PLATELET COUNT (AUTO) 144 K/uL (150-450); RED BLOOD CELL COUNT(AUTO) 4.06 MIL/uL (4.5-6.0); WHITE BLOOD COUNT (AUTO) 12.4 K/uL (4.3-11.0)
[2020-11-29 07:15] LABS: CALCIUM, SERUM 8.5 mg/dL (8.5-10.1); CREATININE 0.9 mg/dL (0.6-1.3); PHOSPHORUS 2.2 mg/dL (2.5-4.9); POTASSIUM 3.2 mmol/L (3.5-5.1)
--- NOTE | 2020-11-29 07:20 | NUR ---
MS RN Closing Notes Patient was seen awake in bed resting. Patient's A/Ox1. Patient's on room air with no respiratory distress noted. Patient has an IV access on his LFA Gauge#20, which is intact, patent, and flushing well. Patient's in no acute distress at this time. Safety measures in place: Bed locked, bed alarm on, side rails upx3, and call light within reach of the patient. Endorsed care to the day shift nurse.
--- NOTE | 2020-11-29 08:26 | NUR ---
WOUND CARE CONSULT: PT PRESENTS WITH RASH ON BUTTOCKS WITH DISCOLORATION AND PEELING SKIN. RECOMMENDATIONS MADE FOR SKIN PROTECTION. DISCUSSED WITH NURSING STAFF. Addendum: 11/29/20 at 0870 by EARL NEGRETE WNDNU Amended: Links added.
[2020-11-29] MEDS: PANTOPRAZOLE 40 MG TABLET.DR PO SCH (08:41)
[2020-11-29] MEDS: CHOLECALCIFEROL 1,000 UNIT TABLET (VIT D3) PO SCH (08:41)
[2020-11-29] MEDS: MULTIVITAMIN/LUTEIN/MINERALS 1 TAB PO SCH (08:41)
[2020-11-29] MEDS: SERTRALINE HCL 25 MG TABLET PO SCH (08:42)
[2020-11-29] MEDS: LEVOTHYROXINE SODIUM 75 MCG TABLET PO SCH (08:42)
[2020-11-29] MEDS: OLANZAPINE 2.5 MG TABLET PO SCH ×3 (08:42→16:47)
[2020-11-29] MEDS: MAGNESIUM OXIDE 400 MG TABLET PO SCH (08:42)
[2020-11-29] MEDS: CYANOCOBALAMIN 500 MCG TABLET PO SCH (08:42)
[2020-11-29] MEDS: IV D5/0.45 NACL 1,000 ML IV SCH ×2 (08:51→21:23)
[2020-11-29] MEDS: CLOTRIMAZOLE 1% 15 GM TUBE TP SCH ×2 (09:05→16:48)
[2020-11-29] MEDS: Z GUARD REMEDY 2 OZ OINT TP SCH (09:05)
[2020-11-29] MEDS ORDERED: POTASSIUM CHLORIDE 20 MEQ TAB.PRT.SR PO ONE (09:30)
[2020-11-29 10:01] VITALS: BP 103/54
--- NOTE | 2020-11-29 11:29 | NUR ---
MS RN OPENING NOTES RECEIVED PATIENT IN BED, RESTING. EASY TO AROUSE, A/O X1. SITTER AT BEDSIDE. ON 2L OXYGEN VIA NASAL CANNULA. NO SOB NOTED. NO DISTRESS/DISCOMFORT NOTED. IV ACCESS TO LEFT FA #20 - RUNNING D5 1/2NS @ 75 ML/HR. SAFETY MEASURES IN PLACE. CALL LIGHT WITHIN REACH. WILL CONTINUE TO MONITOR.
--- NOTE | 2020-11-29 14:13 | NUR ---
MS RN NOTE LIZARRAGA REMOVED. BLADDER SCAN Q6HR FOR RETENTION PER DR. SHOOK.
[2020-11-29] MEDS ORDERED: K PHOS NEUTRAL 250 MG TABLET PO ONE (16:00)
[2020-11-29] MEDS: ENSURE ENLIVE 237 ML LIQUID (VANILLA) PO SCH (16:48)
--- NOTE | 2020-11-29 18:30 | NUR ---
MS RN CLOSING NOTE PATIENT CURRENTLY LYING IN BED, RESTING. EASY TO AROUSE, A/O X1. SITTER AT BEDSIDE. ON 2L OXYGEN VIA NASAL CANNULA. NO SOB NOTED. NO DISTRESS/DISCOMFORT NOTED. IV ACCESS TO LEFT FA #20 - RUNNING D5 1/2NS @ 75 ML/HR. SAFETY MEASURES IN PLACE. CALL LIGHT WITHIN REACH. WILL ENDORSE TO EGG TRAYER NURSE FOR KYA.
--- NOTE | 2020-11-29 19:30 | NUR ---
RN OPENING NOTE PATIENT IN BED, EYES CLOSED. EASILY AROUSED. A/O X1. SITTER AT BEDSIDE. ON 2L OXYGEN VIA NASAL CANNULA.TOLERATING, BREATHING EVEN AND UNLABORED. LEFT FA #20 - RUNNING D5 1/2NS @ 75 ML/HR, PATENT AND INTACT. PATIENT NOT IN ANY DISTRESS AT THIS TIME. SAFETY MEASURES IN PLACE: BED LOCKED AND IN LOWEST POSITION, CALL LIGHT WITHIN REACH, SIDE RAILS UP, BED ALARM ON. WILL MONITOR PATIENT CLOSELY.
[2020-11-29 20:00] VITALS: BP 108/60
--- NOTE | 2020-11-29 20:00 | NUR ---
RN NOTE BLADDER SCAN 312 ML, CHARGE NURSE RECOMMEND TO WAIT AND RE-SCAN BEFORE MIDNIGHT, PATIENT IS INCONTINENT. NO PARAMETERS ON THE ORDER FOR BLADDER SCAN Q6H.
[2020-11-29] MEDS: LORAZEPAM 1 MG TABLET PO PRN (21:14)
[2020-11-29] MEDS: CEFTRIAXONE 1 G in IV D5W 50 ML IV SCH (21:14)
[2020-11-29] MEDS: TAMSULOSIN 0.4 MG CAP.SR.24H PO SCH (21:15)
[2020-11-29] MEDS: LATANOPROST EYE DROP 0.005% 2.5 ML BOTTLE EACHEYE SCH (21:19)
--- NOTE | 2020-11-29 23:50 | NUR ---
RN NOTE BLADDER SCANNED PATIENT SHOWED [address] REYNOLDS, ORDERED TO PUT [facility] BACK. ORDER CARRIED OUT. Addendum: 11/30/20 at 0028 by NANCY HUFFMAN RN [facility] CATH 16 FR INSERTED
[2020-11-30] MEDS ORDERED: SORBITOL SOLUTION 30 ML PO ONE (06:00)
[2020-11-30 06:14] LABS: BASOPHILS % (AUTO) 0.2 % (0.0-2.0); EOSINOPHILS % (AUTO) 3.6 % (0.0-6.0); HEMATOCRIT 37 % (39-51); HEMOGLOBIN 12.2 g/dL (13.5-17.5); LYMPHOCYTES # (AUTO) 0.7 K/uL (0.8-4.8); LYMPHOCYTES % (AUTO) 5.9 % (20.0-44.0); MEAN CORPUSCULAR HGB CONC 33 g/dl (31.0-36.0); MEAN CORPUSCULAR VOLUME 96 fL (80-96); NEUTROPHILS # (AUTO) 9.2 K/uL (1.8-8.9); NEUTROPHILS % (AUTO) 81.3 % (43.0-81.0); PLATELET COUNT (AUTO) 153 K/uL (150-450); WHITE BLOOD COUNT (AUTO) 11.3 K/uL (4.3-11.0)
[2020-11-30 06:33] LABS: CALCIUM, SERUM 8.4 mg/dL (8.5-10.1); CREATININE 0.7 mg/dL (0.6-1.3); PHOSPHORUS 3.5 mg/dL (2.5-4.9); POTASSIUM 3.5 mmol/L (3.5-5.1)
--- NOTE | 2020-11-30 06:59 | NUR ---
RN CLOSING NOTE PATIENT IN BED, SLEEPING. EASILY AROUSED. PATIENT STILL HAS 1:1 SITTER. LFA IV ACCESS PATENT AND INTACT D5 1/2 NS ONGOING AT 75 ML/HR. ON 2 L OF OXYGEN, BREATHING EVEN AND UNLABORED. SAFETY MEASURES IMPLEMENTED. ALL ORDERS CARRIED OUT, ALL NEEDS MET AND ATTENDED. NO SIGNIFICANT CHANGES ON PATIENT'S CONDITION. WILL ENDORSE TO DAY SHIFT NURSE FOR KYA.
[2020-11-30 08:00] VITALS: BP 116/76
[2020-11-30] MEDS: MULTIVITAMIN/LUTEIN/MINERALS 1 TAB PO SCH (08:22)
[2020-11-30] MEDS: OLANZAPINE 2.5 MG TABLET PO SCH ×3 (08:23→21:10)
[2020-11-30] MEDS: MAGNESIUM OXIDE 400 MG TABLET PO SCH (08:23)
[2020-11-30] MEDS: PANTOPRAZOLE 40 MG TABLET.DR PO SCH (08:24)
[2020-11-30] MEDS: TAMSULOSIN 0.4 MG CAP.SR.24H PO SCH ×2 (08:24→16:49)
[2020-11-30] MEDS: CYANOCOBALAMIN 500 MCG TABLET PO SCH (08:24)
[2020-11-30] MEDS: CHOLECALCIFEROL 1,000 UNIT TABLET (VIT D3) PO SCH (08:24)
[2020-11-30] MEDS: LEVOTHYROXINE SODIUM 75 MCG TABLET PO SCH (08:24)
[2020-11-30] MEDS: ENSURE ENLIVE 237 ML LIQUID (VANILLA) PO SCH ×2 (08:24→16:49)
[2020-11-30] MEDS: SERTRALINE HCL 25 MG TABLET PO SCH (08:24)
[2020-11-30] MEDS: Z GUARD REMEDY 2 OZ OINT TP SCH (08:25)
[2020-11-30] MEDS: CLOTRIMAZOLE 1% 15 GM TUBE TP SCH ×2 (08:25→16:54)
[2020-11-30] MEDS: IV D5/0.45 NACL 1,000 ML IV SCH ×2 (09:57→23:45)
[2020-11-30 16:00] VITALS: BP 119/75
--- NOTE | 2020-11-30 19:21 | NUR ---
MS RN CLOSING NOTE PATIENT CURRENTLY LYING IN BED, RESTING. EASY TO AROUSE, A/O X1. SITTER AT BEDSIDE. ON 2L OXYGEN VIA NASAL CANNULA. NO SOB NOTED. NO DISTRESS/DISCOMFORT NOTED. IV ACCESS TO LEFT FA #20 - RUNNING D5 1/2NS @ 75 ML/HR. FAMILY REQUESTING TO HAVE HOSPITALIST CALL PERSONAL DOCTOR - DAVID HASSAN [phone]. SAFETY MEASURES IN PLACE. CALL LIGHT WITHIN REACH. WILL ENDORSE TO FINAL INSPECTOR TRUCK TRAILER NURSE FOR KYA.
--- NOTE | 2020-11-30 19:30 | NUR ---
CONTINUITY OF CARE Patient is Alert to self only, confused. IVF infusing. Ledesma cath in place. Turned and repositioned, patient is Total care, does not follow commands. Right foot 3rd toe discoloration, offload. Will cont to provide care.
[2020-11-30 20:39] VITALS: BP 117/63
[2020-11-30] MEDS: CEFTRIAXONE 1 G in IV D5W 50 ML IV SCH (21:06)
[2020-11-30] MEDS: ZOLPIDEM TARTRATE 5 MG TABLET PO PRN (21:10)
[2020-11-30] MEDS: LATANOPROST EYE DROP 0.005% 2.5 ML BOTTLE EACHEYE SCH (21:16)
[2020-11-30] MEDS: LORAZEPAM 1 MG TABLET PO PRN (22:51)
--- NOTE | 2020-11-30 22:55 | NUR ---
AGITATION Patient appears restless and agitated. Turned and repositioned, Ativan given, fall precaution maintained.
[2020-12-01] MEDS: IV D5/0.45 NACL 1,000 ML IV SCH (06:15)
[2020-12-01 06:23] LABS: BASOPHILS % (AUTO) 0.3 % (0.0-2.0); EOSINOPHILS % (AUTO) 4.3 % (0.0-6.0); HEMATOCRIT 39 % (39-51); HEMOGLOBIN 13.1 g/dL (13.5-17.5); LYMPHOCYTES # (AUTO) 0.8 K/uL (0.8-4.8); LYMPHOCYTES % (AUTO) 7.7 % (20.0-44.0); MEAN CORPUSCULAR HGB CONC 33 g/dl (31.0-36.0); MEAN CORPUSCULAR VOLUME 98 fL (80-96); MONOCYTES # (AUTO) 0.9 K/uL (0.1-1.30); MONOCYTES % (AUTO) 9.1 % (2.0-12.0); NEUTROPHILS # (AUTO) 8.1 K/uL (1.8-8.9); NEUTROPHILS % (AUTO) 78.6 % (43.0-81.0); PLATELET COUNT (AUTO) 174 K/uL (150-450); RED BLOOD CELL COUNT(AUTO) 4.01 MIL/uL (4.5-6.0); WHITE BLOOD COUNT (AUTO) 10.3 K/uL (4.3-11.0)
--- NOTE | 2020-12-01 06:42 | NUR ---
END OF SHIFT REPORT Patient is Alert to self only, confused. Restless at times and agitated. Sitter at bedside. Able to calm down and sleep with Ativan. Ongoing IVF. On abx Rocephin. Afebrile. Had BM this shift. Ledesma cath removed at 0600 am today, obtained 1200 ml urine output. Monitor for urinary retention. Will endorse to oncoming RN.
[2020-12-01 07:07] LABS: CALCIUM, SERUM 8.2 mg/dL (8.5-10.1); CREATININE 0.8 mg/dL (0.6-1.3); POTASSIUM 3.5 mmol/L (3.5-5.1)
--- NOTE | 2020-12-01 07:34 | NUR ---
RN OPENING NOTES Patient seen comfortably lying in bed, breathing even and unlabored, no SOB, no apparent distress noted, no grimacing. Safety precautions maintained, brakes locked, side rails up X 2, call light left within reach, will monitor closely for any changes.
[2020-12-01 08:00] VITALS: BP 125/83
[2020-12-01] MEDS: OLANZAPINE 2.5 MG TABLET PO SCH ×2 (08:45→21:13)
[2020-12-01] MEDS: SERTRALINE HCL 25 MG TABLET PO SCH (08:45)
[2020-12-01] MEDS: CHOLECALCIFEROL 1,000 UNIT TABLET (VIT D3) PO SCH (08:45)
[2020-12-01] MEDS: PANTOPRAZOLE 40 MG TABLET.DR PO SCH (08:45)
[2020-12-01] MEDS: MAGNESIUM OXIDE 400 MG TABLET PO SCH (08:45)
[2020-12-01] MEDS: LEVOTHYROXINE SODIUM 75 MCG TABLET PO SCH (08:46)
[2020-12-01] MEDS: MULTIVITAMIN/LUTEIN/MINERALS 1 TAB PO SCH (08:46)
[2020-12-01] MEDS: CYANOCOBALAMIN 500 MCG TABLET PO SCH (08:46)
[2020-12-01] MEDS: TAMSULOSIN 0.4 MG CAP.SR.24H PO SCH ×2 (08:47→16:58)
[2020-12-01] MEDS: ENSURE ENLIVE 237 ML LIQUID (VANILLA) PO SCH ×2 (08:56→17:06)
[2020-12-01] MEDS: CLOTRIMAZOLE 1% 15 GM TUBE TP SCH ×2 (08:56→17:03)
[2020-12-01] MEDS: Z GUARD REMEDY 2 OZ OINT TP SCH (08:56)
--- NOTE | 2020-12-01 10:52 | NUR ---
WOUND CARE CONSULT: PT SEEN FOR DISCOLORATION TO RT 3RD TOE NEAR NAIL. NO DRAINAGE, TENDERNESS OR SURROUNDING ERYHEMA NOTED. TOE IS MOBILE. WILL SEE PRN. NURSING STAFF TO OBSERVE AREA/SKIN EACH SHIFT. Addendum: 12/01/20 at 1053 by EARL NEGRETE WNDNU Amended: Links added.
--- NOTE | 2020-12-01 11:45 | NUR ---
RN NOTES BLADDER SCAN DONE; NOTED W/ 200-250ML URINE. WILL RE-CHECK FOR RETENTION.
[2020-12-01] MEDS: LORAZEPAM 1 MG TABLET PO PRN (15:43)
--- NOTE | 2020-12-01 16:09 | NUR ---
RN NOTES RE-CHECKED FOR URINARY RETENTION USING BLADDER SCAN; NOTED W/ ~250-300ML URINE, NO BLADDER DISTENTION. INFORMED DR. SHOOK; PER MD, MONITOR FOR NOW AND CONTINUE W/ BLADDER SCAN IN AM.
[2020-12-01 16:10] VITALS: BP 122/72
--- NOTE | 2020-12-01 18:33 | NUR ---
RN NOTES BLADDER SCAN NOTED W/ URINE AT APPROXIMATELY 300ML. NO BLADDER DISTENTION NOTED.
--- NOTE | 2020-12-01 18:48 | NUR ---
RN CLOSING NOTES Patient in bed, AO X 1 with episodes of confusion, reorientation and redirection provided. Breathing even and unlabored, no apparent distress noted, no grimacing. Patient has episodes of moving around, sitter present at bedside. All due medications given per MD order, kept clean and dry, all needs attended, call light left within reach, safety precautions maintained, brakes locked, side rails up X 2, will endorse to next shift for continuity of care.
--- NOTE | 2020-12-01 19:26 | NUR ---
RN OPENING NOTE RECEIVED PT RESTING IN BED, EASILY AROUSABLE TO STIMULI. A/OX1 WITH CONFUSION. REORIENTATION PROVIDED. NO S/S OF PAIN/DISCOMFORT NOTED. NO SOB. SITTER AT BEDSIDE. NO ACUTE DISTRESS NOTED. SAFETY MEASURES IN PLACE, BED IN LOWEST LOCKED POSITION, S/R UPX2, CALL LIGHT WITHIN REACH. WILL CONT TO MONITOR.
[2020-12-01 20:00] VITALS: BP 138/88
[2020-12-01] MEDS: CEFTRIAXONE 1 G in IV D5W 50 ML IV SCH (21:08)
[2020-12-01] MEDS: LATANOPROST EYE DROP 0.005% 2.5 ML BOTTLE EACHEYE SCH (21:36)
[2020-12-02] MEDS: ZOLPIDEM TARTRATE 5 MG TABLET PO PRN (00:17)
[2020-12-02] MEDS: IV D5/0.45 NACL 1,000 ML IV SCH ×2 (02:17→16:17)
--- NOTE | 2020-12-02 07:12 | NUR ---
RN CLOSING NOTE PT RESTING IN BED, EASILY AROUSABLE TO STIMULI. A/OX1 WITH CONFUSION. NO EPISODE OF YELLING OUT DURING THE NIGHT. NO S/S OF PAIN/DISCOMFORT NOTED. NO SOB. SITTER AT BEDSIDE. IV SITE: L-FA #20G INTACT, PATENT. BLADDER SCAN DONE, READING 633ML. NO URINE OUTPUT NOTED. ENDORSED TO NEXT SHIFT NURSE AND WILL INFORM MD IN AM. NO ACUTE EVENTS DURING THE NIGHT. SAFETY MEASURES MAINTAINED, BED IN LOWEST LOCKED POSITION, S/R UPX2, CALL LIGHT WITHIN REACH.
--- NOTE | 2020-12-02 07:16 | NUR ---
RN NOTES Patient in bed resting, AO X1, with episodes of confusion, reorientation and redirection provided. Breathing even and unlabored, on O2 at 2lpm via n/c, no distress noted. Endorsed by previous shift RN that bladder scan last night is about 600ml, no output as per report. Sitter currently at bedside. IV line intact and patent. Safety precautions in place. Will continue to monitor.
[2020-12-02 07:32] LABS: BASOPHILS % (AUTO) 0.4 % (0.0-2.0); HEMATOCRIT 35 % (39-51); HEMOGLOBIN 11.7 g/dL (13.5-17.5); LYMPHOCYTES # (AUTO) 0.6 K/uL (0.8-4.8); LYMPHOCYTES % (AUTO) 6.9 % (20.0-44.0); MEAN CORPUSCULAR HGB CONC 33 g/dl (31.0-36.0); MEAN CORPUSCULAR VOLUME 98 fL (80-96); MONOCYTES # (AUTO) 0.8 K/uL (0.1-1.30); MONOCYTES % (AUTO) 9.4 % (2.0-12.0); NEUTROPHILS # (AUTO) 6.9 K/uL (1.8-8.9); NEUTROPHILS % (AUTO) 78.3 % (43.0-81.0); PLATELET COUNT (AUTO) 182 K/uL (150-450); RED BLOOD CELL COUNT(AUTO) 3.58 MIL/uL (4.5-6.0); WHITE BLOOD COUNT (AUTO) 8.8 K/uL (4.3-11.0)
[2020-12-02 07:42] LABS: CALCIUM, SERUM 7.7 mg/dL (8.5-10.1); CREATININE 0.7 mg/dL (0.6-1.3); POTASSIUM 3.6 mmol/L (3.5-5.1)
[2020-12-02 08:00] VITALS: BP 119/62
[2020-12-02] MEDS: CHOLECALCIFEROL 1,000 UNIT TABLET (VIT D3) PO SCH (09:29)
[2020-12-02] MEDS: TAMSULOSIN 0.4 MG CAP.SR.24H PO SCH ×2 (09:29→16:26)
[2020-12-02] MEDS: SERTRALINE HCL 25 MG TABLET PO SCH (09:30)
[2020-12-02] MEDS: MULTIVITAMIN/LUTEIN/MINERALS 1 TAB PO SCH (09:30)
[2020-12-02] MEDS: MAGNESIUM OXIDE 400 MG TABLET PO SCH (09:30)
[2020-12-02] MEDS: PANTOPRAZOLE 40 MG TABLET.DR PO SCH (09:33)
[2020-12-02] MEDS: OLANZAPINE 2.5 MG TABLET PO SCH ×2 (09:33→21:57)
[2020-12-02] MEDS: CYANOCOBALAMIN 500 MCG TABLET PO SCH (09:36)
[2020-12-02] MEDS: LEVOTHYROXINE SODIUM 75 MCG TABLET PO SCH (09:36)
[2020-12-02] MEDS: Z GUARD REMEDY 2 OZ OINT TP SCH (09:47)
[2020-12-02] MEDS: CLOTRIMAZOLE 1% 15 GM TUBE TP SCH ×2 (09:47→16:23)
[2020-12-02] MEDS: ENSURE ENLIVE 237 ML LIQUID (VANILLA) PO SCH ×2 (09:47→17:00)
--- NOTE | 2020-12-02 10:16 | NUR ---
RN NOTES SPOKE W/ DR. SHOOK AND INFORMED ABOUT BLADDER SCAN. PER MD, OK TO DO IN AND OUT CATH. PROCEDURE DONE USING STERILE TECHNIQUE. PROCEDURE TOLERATED WELL BY PATIENT. ABLE TO OBTAIN URINE OUTPUT OF 1100CC, YELLOW-COLORED, NO SEDIMENT. WILL CONTINUE TO MONITOR.
[2020-12-02] MEDS: LORAZEPAM 1 MG TABLET PO PRN (13:53)
--- NOTE | 2020-12-02 18:57 | NUR ---
RN NOTES PATIENT RESTING IN BED, EYES CLOSED, ABLE TO BE AWAKENED. BREATHING EVEN AND UNLABORED, CONTINUES ON O2 VIA NC AT 2LPM, NO DISTRESS NOTED. IV LINE INTACT AND PATENT, IVF INFUSING WELL. BLADDER SCAN IN THE AFTERNOON WAS <200CC. NO DISTENTION NOTED. SAFETY MEASURES MAINTAINED. WILL ENDORSE ACCORDINGLY.
--- NOTE | 2020-12-02 19:58 | NUR ---
MS/TELE/RN PATIENT IS SLEEPING AT THIS TIME, APPEAR COMFORTABLE, NO SIGNS OF DISTRESS NOTED, SITTER AT BEDSIDE, WILL MONITOR.
[2020-12-02 20:00] VITALS: BP 127/70
[2020-12-02] MEDS: CEFTRIAXONE 1 G in IV D5W 50 ML IV SCH (21:51)
[2020-12-02] MEDS: LATANOPROST EYE DROP 0.005% 2.5 ML BOTTLE EACHEYE SCH (22:00)
--- NOTE | 2020-12-03 01:08 | NUR ---
MS/TELE/RN BLADDER SCAN DONE ORDERED, READS 999 MLS. PATIENT IS RESTLESS AND APPEARS UNCOMFORTABLE. STRAIGHT CATH DONE, 1,400 MLS. CLEAR, BRANDON URINE OUTPUT NOTED. PATIENT APPEARS COMFORTABLE AND PRESENTLY SLEEPING. WILL CONTINUE TO MONITOR.
--- NOTE | 2020-12-03 06:37 | NUR ---
MS/TELE/RN BLADDER SCAN AT 0600= 635, STRAIGHT CATH = 550. PRESENTLY, PATIENT APPEARS SLEEPING, APPEARS COMFORTABLE, NO SIGNS OF DISTRESS NOTED, GOOD SLEEP NOTED DURING THE SHIFT, ALL NEEDS ATTENDED AT THIS TIME, SITTER AT BEDSIDE, WILL CONTINUE TO MONITOR.
--- NOTE | 2020-12-03 07:02 | NUR ---
MS/TELE/RN ENDORSED TO MORGAN GOLDEN, RE: TO INFORM DR. SHOOK WHEN HE VISITS TODAY RE: LORI CATH.
[2020-12-03] MEDS: IV D5/0.45 NACL 1,000 ML IV SCH ×2 (07:30→19:45)
[2020-12-03 08:00] VITALS: BP 129/94
[2020-12-03] MEDS: SERTRALINE HCL 25 MG TABLET PO SCH (08:08)
[2020-12-03] MEDS: PANTOPRAZOLE 40 MG TABLET.DR PO SCH (08:08)
[2020-12-03] MEDS: CYANOCOBALAMIN 500 MCG TABLET PO SCH (08:08)
[2020-12-03] MEDS: TAMSULOSIN 0.4 MG CAP.SR.24H PO SCH ×2 (08:08→16:09)
[2020-12-03] MEDS: LEVOTHYROXINE SODIUM 75 MCG TABLET PO SCH (08:08)
[2020-12-03] MEDS: MAGNESIUM OXIDE 400 MG TABLET PO SCH (08:08)
[2020-12-03] MEDS: CHOLECALCIFEROL 1,000 UNIT TABLET (VIT D3) PO SCH (08:08)
[2020-12-03] MEDS: MULTIVITAMIN/LUTEIN/MINERALS 1 TAB PO SCH (08:08)
[2020-12-03] MEDS: OLANZAPINE 2.5 MG TABLET PO SCH ×2 (08:08→20:17)
[2020-12-03] MEDS: Z GUARD REMEDY 2 OZ OINT TP SCH (08:16)
[2020-12-03] MEDS: ENSURE ENLIVE 237 ML LIQUID (VANILLA) PO SCH ×2 (08:16→16:09)
[2020-12-03] MEDS: CLOTRIMAZOLE 1% 15 GM TUBE TP SCH ×2 (08:17→16:09)
[2020-12-03 08:42] LABS: BASOPHILS # (AUTO) 0.1 K/uL (0.0-0.2); BASOPHILS % (AUTO) 0.9 % (0.0-2.0); EOSINOPHILS % (AUTO) 5.2 % (0.0-6.0); HEMATOCRIT 35 % (39-51); HEMOGLOBIN 11.7 g/dL (13.5-17.5); LYMPHOCYTES # (AUTO) 0.7 K/uL (0.8-4.8); LYMPHOCYTES % (AUTO) 8.8 % (20.0-44.0); MEAN CORPUSCULAR HGB CONC 34 g/dl (31.0-36.0); MEAN CORPUSCULAR VOLUME 96 fL (80-96); MONOCYTES # (AUTO) 0.9 K/uL (0.1-1.30); MONOCYTES % (AUTO) 10.8 % (2.0-12.0); NEUTROPHILS # (AUTO) 5.9 K/uL (1.8-8.9); NEUTROPHILS % (AUTO) 74.3 % (43.0-81.0); PLATELET COUNT (AUTO) 233 K/uL (150-450); RED BLOOD CELL COUNT(AUTO) 3.63 MIL/uL (4.5-6.0); WHITE BLOOD COUNT (AUTO) 7.9 K/uL (4.3-11.0)
--- NOTE | 2020-12-03 09:50 | NUR ---
RN NOTE NOTIFIED OF CONTINUOUS FLUID RETENTION, GAVE NEW ORDER TO INSERT LIZARRAGA CATHETER. LIZARRAGA CATHETER 16FR/10 CC INSERTED. DRAINED 450 ML. PATIENT TOLERATED WELL. WILL CONTINUE TO MONITOR
--- NOTE | 2020-12-03 10:47 | NUR ---
RN NOTE PATIENT NOTED WITH LEFT FOREARM BLEEDING, UPON FURTHER ASSESSMENT SKIN TEAR, ASKED PATIENT AND HUMIDIFIER MAINTENANCE WORKER WHAT HAPPENED. HUMIDIFIER MAINTENANCE WORKER STATED HE WAS SCRATCHING THE AREA. CLEANED WITH NS STERI STRIPS APPLIED, WRAPPED WITH KERLIX. IV ACCESS TO THE LOWER HALF OF FOREARM REMOVED. PHOTO TAKEN AND PLACED IN CHART, MD NOTIFIED, WILL CONTINUE TO MONITOR
[2020-12-03 11:39] LABS: CALCIUM, SERUM 8.5 mg/dL (8.5-10.1); CREATININE 0.9 mg/dL (0.6-1.3); POTASSIUM 4.2 mmol/L (3.5-5.1)
--- NOTE | 2020-12-03 18:24 | NUR ---
MS RN CLOSING NOTE PT RESTING IN BED, EASILY AROUSABLE TO STIMULI. PATIENT IS A/OX1 WITH CONFUSION. REORIENTATION PROVIDED. PATIENT IS BREATHING EVENLY AND NONLABORED ON 2LPM VIA NASAL CANNULA. PATIENT HAS IV ACCESS TO RFA # 20 GAUGE PATENT AND INTACT RUNNING D5 1/2 NS @ 75 ML/HR. NO S/S OF PAIN/DISCOMFORT NOTED. NO SOB. SITTER AT BEDSIDE. NO ACUTE DISTRESS NOTED. ALL MEDICATIONS GIVEN ORDERED. SAFETY MEASURES IN PLACE, BED IN LOWEST LOCKED POSITION, S/R UPX2, CALL LIGHT WITHIN REACH. WILL ENDORSE TO ONCOMING SHIFT
[2020-12-03 20:00] VITALS: BP 117/69
[2020-12-03] MEDS: LATANOPROST EYE DROP 0.005% 2.5 ML BOTTLE EACHEYE SCH (22:00)
--- NOTE | 2020-12-03 22:27 | NUR ---
latanoprost eye drops not in cubby or at bedside. looked in drawers, sheets, etc. Pharmacy not open will call in AM regarding refill.
[2020-12-04] MEDS: LORAZEPAM 1 MG TABLET PO PRN ×2 (04:04→17:58)
[2020-12-04 06:09] LABS: BASOPHILS # (AUTO) 0.1 K/uL (0.0-0.2); BASOPHILS % (AUTO) 0.8 % (0.0-2.0); EOSINOPHILS % (AUTO) 4.3 % (0.0-6.0); HEMATOCRIT 35 % (39-51); LYMPHOCYTES # (AUTO) 0.7 K/uL (0.8-4.8); LYMPHOCYTES % (AUTO) 9.1 % (20.0-44.0); MEAN CORPUSCULAR HGB CONC 35 g/dl (31.0-36.0); MEAN CORPUSCULAR VOLUME 94 fL (80-96); MONOCYTES # (AUTO) 0.8 K/uL (0.1-1.30); MONOCYTES % (AUTO) 9.3 % (2.0-12.0); NEUTROPHILS # (AUTO) 6.2 K/uL (1.8-8.9); NEUTROPHILS % (AUTO) 76.5 % (43.0-81.0); PLATELET COUNT (AUTO) 259 K/uL (150-450); WHITE BLOOD COUNT (AUTO) 8.1 K/uL (4.3-11.0)
--- NOTE | 2020-12-04 06:37 | NUR ---
Patient has been A&Ox1. Has episodes of agitation, some relief found with PRN Ativan. Sitter at bedside. Tolerated all due medications well. Ledesma intact and patent drained 2000cc of yellow clear urine. 2 BMs this shift. Pictures taken of all skin issues. RFA IV #20G running D% 1/2 NS at 75cc/hr.
--- NOTE | 2020-12-04 07:13 | NUR ---
MS RN OPENING NOTE RECEIVED PT RESTING IN BED, EASILY AROUSABLE TO STIMULI. PATIENT IS A/OX1 WITH CONFUSION. REORIENTATION PROVIDED. PATIENT IS BREATHING EVENLY AND NONLABORED ON 2LPM VIA NASAL CANNULA. PATIENT HAS IV ACCESS TO RFA # 20 GAUGE PATENT AND INTACT RUNNING D5 1/2 NS @ 75 ML/HR. NO S/S OF PAIN/DISCOMFORT NOTED. NO SOB. SITTER AT BEDSIDE. NO ACUTE DISTRESS NOTED. SAFETY MEASURES IN PLACE, BED IN LOWEST LOCKED POSITION, S/R UPX2, CALL LIGHT WITHIN REACH. WILL CONT TO MONITOR.
[2020-12-04 07:31] LABS: CALCIUM, SERUM 8.2 mg/dL (8.5-10.1); CREATININE 0.7 mg/dL (0.6-1.3); POTASSIUM 3.6 mmol/L (3.5-5.1)
[2020-12-04 08:00] VITALS: BP 118/66
[2020-12-04] MEDS: SERTRALINE HCL 25 MG TABLET PO SCH (08:25)
[2020-12-04] MEDS: CYANOCOBALAMIN 500 MCG TABLET PO SCH (08:25)
[2020-12-04] MEDS: MULTIVITAMIN/LUTEIN/MINERALS 1 TAB PO SCH (08:25)
[2020-12-04] MEDS: CHOLECALCIFEROL 1,000 UNIT TABLET (VIT D3) PO SCH (08:25)
[2020-12-04] MEDS: TAMSULOSIN 0.4 MG CAP.SR.24H PO SCH ×2 (08:25→16:09)
[2020-12-04] MEDS: LEVOTHYROXINE SODIUM 75 MCG TABLET PO SCH (08:25)
[2020-12-04] MEDS: PANTOPRAZOLE 40 MG TABLET.DR PO SCH (08:26)
[2020-12-04] MEDS: MAGNESIUM OXIDE 400 MG TABLET PO SCH (08:26)
[2020-12-04] MEDS: OLANZAPINE 2.5 MG TABLET PO SCH ×2 (08:26→22:52)
[2020-12-04] MEDS: ENSURE ENLIVE 237 ML LIQUID (VANILLA) PO SCH ×2 (08:37→16:10)
[2020-12-04] MEDS: CLOTRIMAZOLE 1% 15 GM TUBE TP SCH ×2 (08:38→16:10)
[2020-12-04] MEDS: IV D5/0.45 NACL 1,000 ML IV SCH ×2 (08:40→22:09)
[2020-12-04] MEDS: Z GUARD REMEDY 2 OZ OINT TP SCH (09:30)
--- NOTE | 2020-12-04 10:28 | NUR ---
WOUND CARE CONSULT: PT SEEN FOR LEFT ARM SKIN TEAR. RECOMMENDATIONS MADE FOR WOUND CARE AND SKIN PROTECTION. DISCUSSED WITH NURSING STAFF. CIRO Vu AGREEMENT WITH PLAN OF CARE. PT NOTED TO HAVE FRAGILE SKIN. Addendum: 12/04/20 at 1029 by EARL NEGRETE WNDNU Amended: Links added.
--- NOTE | 2020-12-04 15:17 | NUR ---
RN NOTE RECEIVED ORDER FROM DR PABON TO DC HOLD DUE TO NO BEHAVIORAL ISSUES SUCH AGITATION, PULLING LINES OR OTHER ISSUES. WILL CONTINUE TO MONITOR
[2020-12-04 16:00] VITALS: BP 100/64
--- NOTE | 2020-12-04 18:00 | NUR ---
RN NOTE PATIENT IS SHOWING SIGNS OF ANXIETY AND AGITATION SUCH YELLING RAPID BREATHING AND KICKING LEGS. VITALS STABLE. GAVE PRN ATIVAN. WILL CONTINUE TO MONITOR
--- NOTE | 2020-12-04 18:31 | NUR ---
MS RN CLOSING NOTE PT RESTING IN BED, EASILY AROUSABLE TO STIMULI. PATIENT IS A/OX1 WITH CONFUSION. REORIENTATION PROVIDED. PATIENT IS BREATHING EVENLY AND NONLABORED ON 2LPM VIA NASAL CANNULA. PATIENT HAS IV ACCESS TO RFA # 20 GAUGE PATENT AND INTACT RUNNING D5 1/2 NS @ 75 ML/HR. NO S/S OF PAIN/DISCOMFORT NOTED. ALL MEDICATIONS GIVEN ORDERED NO ACUTE DISTRESS NOTED. SAFETY MEASURES IN PLACE, BED IN LOWEST LOCKED POSITION, S/R UPX2, CALL LIGHT WITHIN REACH. WILL CONT TO MONITOR.
--- NOTE | 2020-12-04 19:30 | NUR ---
MS/TELE/RN RECEIVED PATIENT AWAKE, CONFUSED, FLAT AFFECT, RESTLESS, NO DISTRESS NOTED, WILL MONITOR CLOSELY FOR SAFETY.
[2020-12-04 20:00] VITALS: BP 110/76
--- NOTE | 2020-12-04 22:40 | NUR ---
MS/TELE/RN PATIENT IS VERY CONFUSED, PULLED OUT HIS IV, TRYING TO PULL OUT HIS F/C, AND TRYING TO GET OUT OF BED. OBTAINED ORDER FOR BILATERAL SOFT WRIST RESTRAIN. WILL MONITOR PER PROTOCOL.
[2020-12-04] MEDS: LATANOPROST EYE DROP 0.005% 2.5 ML BOTTLE EACHEYE SCH (22:53)
[2020-12-05] MEDS: LORAZEPAM 1 MG TABLET PO PRN (03:03)
--- NOTE | 2020-12-05 03:09 | NUR ---
MS/TELE/RN PATIENT IS STILL AWAKE, VERY AGITATED, ATIVAN 1 MG PO CRUSHED, WAS GIVEN ORDERED. WILL MONITOR.
--- NOTE | 2020-12-05 04:17 | NUR ---
,S/TELE/RN PATIENT APPEARS SLEEPING AT THIS TIME, APPEARS COMFORTABLE, NO SIGNS OF DISTRESS NOTED, CALL LIGHT IN REACH. WILL CONTINUE TO MONITOR.
--- NOTE | 2020-12-05 06:04 | NUR ---
MS/TELE/RN PATIENT IS AWAKE AT THIS TIME, CALM AND COMFORTABLE, NO SIGNS OF DISTRESS NOTED, ON AND OFF SLEEP WAS NOTED DURING THE SHIFT, ALL NEEDS ATTENDED AT THIS TIME, WILL CONTINUE TO MONITOR.
[2020-12-05 06:55] LABS: BASOPHILS # (AUTO) 0.1 K/uL (0.0-0.2); BASOPHILS % (AUTO) 0.7 % (0.0-2.0); CALCIUM, SERUM 8.4 mg/dL (8.5-10.1); CREATININE 0.7 mg/dL (0.6-1.3); EOSINOPHILS % (AUTO) 2.8 % (0.0-6.0); HEMATOCRIT 36 % (39-51); HEMOGLOBIN 12.3 g/dL (13.5-17.5); LYMPHOCYTES # (AUTO) 0.9 K/uL (0.8-4.8); LYMPHOCYTES % (AUTO) 9.5 % (20.0-44.0); MEAN CORPUSCULAR HGB CONC 34 g/dl (31.0-36.0); MEAN CORPUSCULAR VOLUME 96 fL (80-96); MONOCYTES # (AUTO) 0.7 K/uL (0.1-1.30); MONOCYTES % (AUTO) 8.1 % (2.0-12.0); NEUTROPHILS # (AUTO) 7.2 K/uL (1.8-8.9); NEUTROPHILS % (AUTO) 78.9 % (43.0-81.0); PLATELET COUNT (AUTO) 281 K/uL (150-450); POTASSIUM 3.9 mmol/L (3.5-5.1); RED BLOOD CELL COUNT(AUTO) 3.73 MIL/uL (4.5-6.0); WHITE BLOOD COUNT (AUTO) 9.2 K/uL (4.3-11.0)
[2020-12-05 08:00] VITALS: BP 119/78
[2020-12-05] MEDS ORDERED: OLANZAPINE 2.5 MG TABLET PO SCH (08:00)
[2020-12-05] MEDS ORDERED: IV D5/0.45 NACL 1,000 ML IV PRN (08:08)
[2020-12-05] MEDS: ENSURE ENLIVE 237 ML LIQUID (VANILLA) PO SCH ×2 (09:00→17:09)
[2020-12-05] MEDS: CYANOCOBALAMIN 500 MCG TABLET PO SCH (09:29)
[2020-12-05] MEDS: SERTRALINE HCL 25 MG TABLET PO SCH (09:29)
[2020-12-05] MEDS: LEVOTHYROXINE SODIUM 75 MCG TABLET PO SCH (09:29)
[2020-12-05] MEDS: TAMSULOSIN 0.4 MG CAP.SR.24H PO SCH ×2 (09:29→17:07)
[2020-12-05] MEDS: MULTIVITAMIN/LUTEIN/MINERALS 1 TAB PO SCH (09:30)
[2020-12-05] MEDS: MAGNESIUM OXIDE 400 MG TABLET PO SCH (09:30)
[2020-12-05] MEDS: CLOTRIMAZOLE 1% 15 GM TUBE TP SCH ×2 (09:30→17:09)
[2020-12-05] MEDS: CHOLECALCIFEROL 1,000 UNIT TABLET (VIT D3) PO SCH (09:30)
[2020-12-05] MEDS: Z GUARD REMEDY 2 OZ OINT TP SCH (09:37)
[2020-12-05] MEDS: PANTOPRAZOLE 40 MG TABLET.DR PO SCH (09:49)
--- NOTE | 2020-12-05 10:30 | NUR ---
m/s guest relations receptionist: notes cn informed me that pt for d'c to snf today and case management making arrangements. pt remains confused and disoriented, unable to comprehend. reality orientation provided prn. will continue to monitor.
--- NOTE | 2020-12-05 11:00 | NUR ---
m/s plate glass installer: notes pt off shamir soft wrist restraints. reality orientation provided prn.
--- NOTE | 2020-12-05 12:20 | NUR ---
m/s tax manager cpa: md visit dr. escalante here and will discharge pt back to snf with the osullivan catheter, pt needs f/u with urologist as outpatient. case management making arrangement.
[2020-12-05] MEDS: OLANZAPINE 2.5 MG TABLET PO SCH ×2 (13:00→17:07)
--- NOTE | 2020-12-05 13:00 | NUR ---
m/s internet salesperson: notes pt remains off shamir soft wrist restraint. will continue to monitor.
--- NOTE | 2020-12-05 13:44 | NUR ---
m/s wool shearer: notes pt sleeping at interval since 1100am. no resp. distress noted. will continue to monitor.
--- NOTE | 2020-12-05 14:00 | NUR ---
m/s core shaper sides: notes reminded dr. escalante to order discharge back to snf. case management making arrangement.
--- NOTE | 2020-12-05 14:25 | NUR ---
m/s electrician helper automotive: notes edgar (sd) called and informed me that snf is accepting the case and need a rapid covid test. dr. escalante notified and made aware with order of rapid covid test. order read back and carried out and acknowledged. cotton picker time at 1800.
[2020-12-05] MEDS ORDERED: TAMS-12 PO (14:41)
[2020-12-05] MEDS ORDERED: OLAN2.5T3 PO ×3 (14:41)
--- NOTE | 2020-12-05 14:45 | NUR ---
m/s clinical trial leader: notes rapid 19-antigen collected and sent to lab. order received to adilson'c to [facility] from dr. escalante. orders acknowledged.
--- NOTE | 2020-12-05 15:17 | NUR ---
m/s optomechanical engineer: notes silvino () notified and made aware re: d'c back to snf at 1800 today, spoke to her over the phone.
[2020-12-05 16:00] VITALS: BP 139/80
--- NOTE | 2020-12-05 16:10 | NUR ---
m/s ladler: notes [facility] notified and spoke to ann (rn) and report given over the phone for continuity of care. eta at 1800.
--- NOTE | 2020-12-05 18:10 | NUR ---
m/s diesel powerplant mechanic: notes f/u made to case management re: sisal picker time by am west and per case management time was set up for 2000 instead of 1800. delvis patel) from [facility].
--- NOTE | 2020-12-05 18:40 | NUR ---
m/s case management director: notes pt resting comfortable in bed. pt unable to sign discharge instruction due to cognitive impairment. 2 license nurse signed all d'c papers. no distress noted. fc draining to gravity with clear yellow urine. will continue to monitor.
--- NOTE | 2020-12-05 19:00 | NUR ---
m/s peanut salter: notes report given to germania (jacky) for continuity of care. pickle cutter at 1999.
--- NOTE | 2020-12-05 20:59 | NUR ---
ms rn note D/C patient picked up and brought down by EMT at this time. IV line disconnected. no ID band with the patient. patient was in stable condition, very confused but that's his baseline. no s/s of apparent distress, saturation at 95% room air. V/S as follows: bp: 11/64, p- 73, rr- 19, t- 97.5. Report given to [facility] by David, Report given to EMT by me with the discharge packet. belongings signed and checked by and Arcelia because patient is unable to sign.
== END 2020-12-05 21:00 | DRG 871 ==
LOC: MED 23:36
PROVIDERS: ADMIT Internal Medicine; ATTEND Student in an Organized Health Care Education/Training Program
DX: A41.9 Sepsis, unspecified organism (principal); N17.0 Acute kidney failure with tubular necrosis; J96.01 Acute respiratory failure with hypoxia; N39.0 Urinary tract infection, site not specified; F02.81 Dementia in other diseases classified elsewhere, unspecified severity, with behavioral disturbance; E87.0 Hyperosmolality and hypernatremia; F32.9 Major depressive disorder, single episode, unspecified; F29 Unspecified psychosis not due to a substance or known physiological condition; N13.9 Obstructive and reflux uropathy, unspecified; Z73.6 Limitation of activities due to disability; R27.8 Other lack of coordination; Z91.81 History of falling; E66.01 Morbid (severe) obesity due to excess calories; G30.9 Alzheimer's disease, unspecified; F41.9 Anxiety disorder, unspecified; E03.9 Hypothyroidism, unspecified; Z79.899 Other long term (current) drug therapy; F25.9 Schizoaffective disorder, unspecified; R33.9 Retention of urine, unspecified
CPT/HCPCS: 36415; 36600; 71045-TC; 74018; 76770-TC; 80048-TC; 80053-TC; 82550-TC; 82553; 82728-TC; 83615-TC; 83735-TC; 84100-TC; 84439-TC; 84443-TC; 85025-TC; 85378-TC; 85385-TC; 86140-TC; G0378; J0696; J3490; J7030; J7060; U0003